=== PATIENT | male | born 1985 | race Caucasian/White ===

== ENCOUNTER 2020-06-21 15:33 | Emergency (ER) | payer MEDICAID ==
[~2020-06-21] VITALS: Ht 175.3 cm; Wt 79.7 kg
[2020-06-21 16:05] LABS: BASOPHILS % (AUTO) 0 % (0-1); EOSINOPHILS % (AUTO) 0 % (1-7); LYMPHOCYTES % (AUTO) 4 % (22-44); MEAN CORPUSCULAR HEMOGLOBIN 28.2 pg (27.5-34.5); MEAN CORPUSCULAR HGB CONC 33.4 g/dL (33.2-36.2); MEAN PLATELET VOLUME 6.9 fL (7.4-10.4); MONOCYTES % (AUTO) 5 % (2-9); NEUTROPHILS % (AUTO) 90 % (42-75); PLATELET COUNT 335 x10^3/uL (130-400); RED BLOOD COUNT 5.69 x10^6/uL (4.38-5.82); RED CELL DISTRIBUTION WIDTH 13.5 % (9.4-14.8)
[2020-06-21 16:12] LABS: ALBUMIN 4.6 g/dL (3.4-5.0); ANION GAP 9 mmol/L (5-15); CALCIUM 9.1 mg/dL (8.5-10.1); CHLORIDE 102 mmol/L (98-107)
[2020-06-21 16:15] LABS: ALANINE AMINOTRANSFERASE 27 U/L (12-78); ALKALINE PHOSPHATASE 82 U/L (45-117); BILIRUBIN,TOTAL 0.6 mg/dL (0.2-1.0); CREATININE 1.39 mg/dL (0.7-1.3); TOTAL PROTEIN 8.2 g/dL (6.4-8.2)
[2020-06-21 17:13] LABS: MD SCAN
[2020-06-21 18:44] LABS: MICROSCOPIC INDICATED
[2020-06-21 18:54] LABS: AMPHETAMINE SCREEN, URINE Positive (Negative); BARBITURATE SCREEN, URINE Negative (Negative); BENZODIAZEPINE SCREEN, URINE Negative (Negative); CANNABINOID SCREEN, URINE Negative (Negative); COCAINE SCREEN, URINE Negative (Negative); METHADONE SCREEN, URINE Negative (Negative); OPIATE SCREEN, URINE Negative (Negative)
--- NOTE | 2020-06-21 19:12 | NUR ---
MICROBIOLOGY QUALITY CONTROL TECHNICIAN: PT. TO ROOM FROM LOBBY AT THIS TIME. STEADY GAIT.
--- NOTE | 2020-06-21 19:21 | NUR ---
FIRST CONTACT, A/OX. NO ORAL TRAUMA, NO INC, C/O HEADACHE, VOMIT X1 IN LOBBY, SLIGHT DIZZY. HAS NOT EATEN TODAY. ON MONITOR, CONT PULSE OX, CALL [facility]RIGUEZ IN REACH. URINE SENT TO LAB. WILL CONTINUE TO MONITOR. AIDET PROVIDED.
--- NOTE | 2020-06-21 20:02 | NUR ---
WALKS TO BATHROOM, STEADY GAIT, VSS.
[2020-06-21 20:20] VITALS: BP 134/88
--- NOTE | 2020-06-21 20:20 | NUR ---
TO BE DISPO, WALKS TO BATHROOM STEADY GAIT, VSS.
== END 2020-06-21 20:46 | disposition home or self-care (01) ==
LOC: ED 20:40
DX: R55 Syncope and collapse (principal); R51.9 Headache, unspecified; R06.89 Other abnormalities of breathing; R94.31 Abnormal electrocardiogram [ECG] [EKG]
CPT/HCPCS: 36415; 70450; 71045; 80053; 80307; 81001; 85025; 87086; 93005; 99285

== ENCOUNTER → 2020-07-25 | Emergency (ER) | payer MEDICAID ==
[~2020-07-25] VITALS: Ht 175.3 cm; Wt 82.6 kg
[2020-07-25 10:38] VITALS: BP 132/60
== END ==
LOC: ED 12:32
DX: L03.114 Cellulitis of left upper limb (principal); M79.602 Pain in left arm; Z88.1 Allergy status to other antibiotic agents
CPT/HCPCS: 99283